=== PATIENT | female | born 1995 | race Two or more races ===

== ENCOUNTER 2021-11-02 17:58 | Emergency (ER) | payer OTHER ==
[~2021-11-02] VITALS: Ht 172.7 cm; Wt 86.2 kg
== END 2021-11-02 22:13 | disposition home or self-care (01) ==
LOC: ER 17:58
DX: O26.891 Other specified pregnancy related conditions, first trimester (principal); Z3A.08 8 weeks gestation of pregnancy; R10.2 Pelvic and perineal pain

== ENCOUNTER 2022-01-24 11:28 | Outpatient (CLI) | payer OTHER | END 2022-01-24 13:36 | disposition home or self-care (01) | LOC: PRENATAL 11:28 | PROVIDERS: ATTEND Obstetrics & Gynecology Maternal & Fetal Medicine | DX: Z76.1 Encounter for health supervision and care of foundling (principal) ==

== ENCOUNTER 2022-02-21 15:30 | Outpatient (CLI) | payer OTHER | END 2022-02-21 16:59 | disposition home or self-care (01) | LOC: PRENATAL 15:30 | PROVIDERS: ATTEND Obstetrics & Gynecology Maternal & Fetal Medicine | DX: O35.9XX0 Maternal care for (suspected) fetal abnormality and damage, unspecified, not applicable or unspecified (principal); O28.1 Abnormal biochemical finding on antenatal screening of mother; O34.219 Maternal care for unspecified type scar from previous cesarean delivery; O35.3XX0 Maternal care for (suspected) damage to fetus from viral disease in mother, not applicable or unspecified; Z3A.23 23 weeks gestation of pregnancy ==

== ENCOUNTER 2022-06-03 09:25 | Inpatient (IN) | payer OTHER ==
[~2022-06-03] VITALS: Ht 172.7 cm; Wt 117.0 kg
[2022-06-03] MEDS ORDERED: PRENATABS RX T1 EACH PO (10:03)
[2022-06-11] MEDS ORDERED: PERCOCET 5-3251 EACH PO (09:25)
== END 2022-06-11 11:52 | disposition home or self-care (01) | DRG 785 ==
LOC: O/R 06-08 06:04 → OB/GYN 06-08 06:04
PROVIDERS: ADMIT Obstetrics & Gynecology; ATTEND Obstetrics & Gynecology
PROC: 0UB70ZZ Excision of Bilateral Fallopian Tubes, Open Approach (ICD-10-PCS; 2022-06-08)
PROC: 4A1HXCZ Monitoring of Products of Conception, Cardiac Rate, External Approach (ICD-10-PCS; 2022-06-08)
PROC: 10D00Z1 Extraction of Products of Conception, Low, Open Approach (ICD-10-PCS; principal; 2022-06-08 07:00)
DX: O36.63X0 Maternal care for excessive fetal growth, third trimester, not applicable or unspecified (principal); O34.211 Maternal care for low transverse scar from previous cesarean delivery; Z3A.39 39 weeks gestation of pregnancy; Z37.0 Single live birth; Z20.822 Contact with and (suspected) exposure to COVID-19; Z30.2 Encounter for sterilization

== ENCOUNTER 2024-12-09 01:52 | Inpatient (IN) | payer OTHER ==
[~2024-12-09] VITALS: Ht 172.7 cm; Wt 108.9 kg
[~2024-12-09 01:52] MED LIST: PERCOCET 5-3251 EACH PO; PRENATABS RX T1 EACH PO
[2024-12-09] MEDS ORDERED: KETOROLAC TROMETHAMINE 30 MG VIAL IV STA (03:35)
[2024-12-09] MEDS ORDERED: RINGERS SOLUTION,LACTATED 1,000 ML IV ONE (03:45)
[2024-12-09 04:11] LABS: BASO % 0.4 % (0.1-1.2); EOS # 0.08 (0.04-0.54); EOS % 1.0 % (0.7-7.0); LYMPH # 1.68 (1.18-3.74); LYMPH % 20.3 % (19.3-53.1); MONO # 0.52 (0.24-0.82); MONO % 6.3 % (4.7-12.5); NEUT # 5.92 (1.56-6.13); NEUT % 71.6 % (34.0-71.1); RED CELL DISTRIBUTION WIDTH 17.2 % (11.6-14.4)
[2024-12-09 04:18] LABS: INR 0.96
[2024-12-09 04:24] LABS: BUN CREA RATIO 19 (7.0-25.0); CREATININE SERUM 0.68 mg/dL (0.55-1.02); GFR 103.03; GLUCOSE FASTING 110 mg/dL (65-100); HCG QUANTITATIVE < 1 mUI/mL (1-3); OSMOLALITY SERUM 278 MOSM/KG (275-295)
[2024-12-09 09:05] VITALS: BP 105/68
[2024-12-09 10:57] LABS: COVID-19 AG NEGATIVE (NEGATIVE)
[2024-12-09 12:59] VITALS: BP 116/76; O2SAT 97
[2024-12-09 16:14] VITALS: BP 96/61
[2024-12-09 19:10] VITALS: BP 109/72
[2024-12-10 00:03] LABS: BASO % 0.3 % (0.1-1.2); EOS # 0.23 (0.04-0.54); EOS % 2.6 % (0.7-7.0); LYMPH # 2.96 (1.18-3.74); LYMPH % 33.6 % (19.3-53.1); MONO # 0.62 (0.24-0.82); MONO % 7.0 % (4.7-12.5); NEUT # 4.92 (1.56-6.13); NEUT % 56.0 % (34.0-71.1)
[2024-12-10 00:25] LABS: RED CELL DISTRIBUTION WIDTH 21.2 % (11.6-14.4)
[2024-12-10 00:37] VITALS: BP 107/69
[2024-12-10 08:52] VITALS: BP 101/66; O2SAT 98
== END 2024-12-10 10:28 | disposition home or self-care (01) | DRG 761 ==
LOC: ER 02:00 → OB/GYN 09:21 → SEC-K 09:21 → OB/GYN 10:25
PROVIDERS: General Practice; ADMIT Obstetrics & Gynecology; ATTEND Obstetrics & Gynecology
PROC: BU4CZZZ Ultrasonography of Uterus and Ovaries (ICD-10-PCS; principal; 2024-12-09)
PROC: 30233N1 Transfusion of Nonautologous Red Blood Cells into Peripheral Vein, Percutaneous Approach (ICD-10-PCS; 2024-12-09)
DX: N92.1 Excessive and frequent menstruation with irregular cycle (principal); D51.0 Vitamin B12 deficiency anemia due to intrinsic factor deficiency